=== PATIENT | female | born 1935 | race Caucasian/White ===

== ENCOUNTER 2017-12-23 12:36 | Outpatient (CLI) | payer MEDICARE, BC | END 2017-12-23 12:37 | disposition home or self-care (01) | LOC: BICULT 12:36 | PROVIDERS: ATTEND Internal Medicine Cardiovascular Disease | DX: E04.2 Nontoxic multinodular goiter (principal) | CPT/HCPCS: 76536 ==

== ENCOUNTER 2022-02-02 14:11 | Observation (INO) | payer MEDICARE, BC ==
[2022-02-02 15:34] LABS: Troponin I 0.057 ng/mL (< 0.028)
[2022-02-02] MEDS ORDERED: Nitroglycerin 0.4 MG TAB (25 Tab Bottle) SL PRN (18:07)
[2022-02-02] MEDS ORDERED: Acetaminophen 325 MG TAB PO PRN (18:07)
[2022-02-02 19:09] LABS: Troponin I 0.077 ng/mL (< 0.028)
[2022-02-02 19:58] VITALS: BMI 34.8
[2022-02-02] MEDS ORDERED: Enoxaparin Sodium 40 MG/0.4 ML SYRINGE SC SCH (21:00)
[2022-02-02] MEDS ORDERED: Rosuvastatin 20 MG TAB PO SCH (21:00)
[2022-02-02] MEDS ORDERED: Aspirin 81 mg Enteric Coated Tablet PO SCH (21:00)
[2022-02-02] MEDS ORDERED: Rosuvastatin 10 MG TAB PO SCH (21:00)
[2022-02-03 04:29] LABS: Anion Gap 15 mmol/L (10-20); BUN (Urea Nitrogen) 12 mg/dL (9.8-20.1); Calc. Creatinine Clearance 86 mL/min (70-130); Calcium 8.7 mg/dL (7.8-10.44); Carbon Dioxide 23 mmol/L (23-31); Cardiac Risk 2.8 (Less than 4.5); Chloride 106 mmol/L (98-107); Cholesterol 147 mg/dl (< 200 Desired); Estimated GFR 78; Glucose 112 mg/dL (83-110); HDL Cholesterol 53 mg/dL (>60 Neg Risk); LDL Cholesterol, Calculated 74 mg/dL; Magnesium 1.9 mg/dL (1.6-2.6); Potassium 3.8 mmol/L (3.5-5.1); Sodium 140 mmol/L (136-145); Triglycerides 101 mg/dL (Less than 150)
[2022-02-03 04:35] LABS: Troponin I 0.057 ng/mL (< 0.028)
[2022-02-03] MEDS ORDERED: Iopamidol 370 76% 100 ML VIAL ONE (07:29)
[2022-02-03] MEDS ORDERED: CATH Communication Order-Pharmacy FS SCH (08:45)
[2022-02-03] MEDS ORDERED: Sodium Chloride 0.9% 1,000 ML IV SCH (09:00)
[2022-02-03] MEDS ORDERED: Aspirin Chewable 81 MG TAB PO SCH (09:00)
[2022-02-03] MEDS ORDERED: Nitroglycerin 100MG/250ML BOT 250 ML ONE (09:06)
[2022-02-03] MEDS ORDERED: Verapamil 5 MG/2 ML VIAL ONE (09:06)
[2022-02-03] MEDS ORDERED: Adenosine 6 MG/2 ML VIAL ONE (09:06)
[2022-02-03] MEDS ORDERED: Lidocaine 1% PF 5 ML VIAL ONE (09:07)
[2022-02-03] MEDS ORDERED: Lidocaine 1% (PF) 30 ML VIAL ONE (09:07)
[2022-02-03] MEDS ORDERED: Heparin 10,000 UNITS/ 10 ML VIAL ONE (09:08)
[2022-02-03] MEDS ORDERED: Fentanyl 100 MCG/2 ML VIAL ONE (09:43)
[2022-02-03] MEDS ORDERED: Midazolam HCl 2 mg/2 ml Vial ONE (09:43)
[2022-02-03] MEDS ORDERED: hydrALAZINE 20 MG/ML VIAL ONE (10:35)
[2022-02-03 15:43] VITALS: BP 120/55; TEMP 98
== END 2022-02-03 16:30 | disposition home or self-care (01) ==
LOC: ERS 14:11 → 2NO 15:30
PROVIDERS: ADMIT Internal Medicine; ATTEND Internal Medicine
PROC: 4A023N7 Measurement of Cardiac Sampling and Pressure, Left Heart, Percutaneous Approach (ICD-10-PCS; principal; 2022-02-02)
PROC: B2111ZZ Fluoroscopy of Multiple Coronary Arteries using Low Osmolar Contrast (ICD-10-PCS; 2022-02-02)
DX: I25.110 Atherosclerotic heart disease of native coronary artery with unstable angina pectoris (principal); Q24.5 Malformation of coronary vessels; E78.5 Hyperlipidemia, unspecified; I10 Essential (primary) hypertension; Z87.891 Personal history of nicotine dependence; Z79.82 Long term (current) use of aspirin; Z79.899 Other long term (current) drug therapy; Z95.5 Presence of coronary angioplasty implant and graft; Z20.822 Contact with and (suspected) exposure to COVID-19
CPT/HCPCS: 71045; 80048; 80053; 80061; 82553; 83735; 83880; 84484 ×3; 85025; 93005; 93454; 94760 ×2; 99285; U0002; 36415; 96372; 99152; 99153; C1894; G0378; J0153; J0360; J1644; J1650; J2001; J2250; J3010; J7050; Q9967